=== PATIENT | male | born 1975 | race Caucasian/White ===

== ENCOUNTER 2019-02-22 07:40 | Day surgery (SDC) | payer BC ==
[~2019-02-22 07:40] MED LIST: Lactated Ringers 1,000 ML IV SCH; Lidocaine 1%/Sod Bicarbonate in NS 8.4% 1 ML Syringe IDERM PRN; Sodium Chloride 0.9% 10 ML Syringe FLUSH PRN
[2019-02-22] MEDS ORDERED: fentaNYL 100 MCG/2 ML SDV ONE (09:10)
[2019-02-22] MEDS ORDERED: Propofol 200 MG/20 ML SDV ONE ×3 (09:10→09:49)
[2019-02-22] MEDS ORDERED: Albuterol 6.7 GM Inhaler INH ONE (09:23)
--- NOTE | 2019-02-22 09:28 | PCM.PREANE ---
Preanesthetic Assessment - Anesthesia/Transfusion/Family Hx Anesthesia History: Prior Anesthesia Without Reaction Family History of Anesthesia Reaction: No - Review of Systems General: No Symptoms Pulmonary: No Symptoms (Exercise induced asthma. Uses his inhaler prior to exercise. ) Cardiovascular: No Symptoms (Runs 3 miles a few times a week. ) Gastrointestinal: No Symptoms Neurological: No Symptoms Other: Reports: None (Morbid Obesity BMI 45) - Physical Assessment NPO Status Date: 02/21/19 NPO Status Time: 22:00 O2 Sat by Pulse Oximetry: 94 Respiratory Rate: 16 Vital Signs: Last Vital Signs Temp 36.4 C 02/22/19 07:50 Pulse 53 L 02/22/19 07:50 Resp 16 02/22/19 07:50 BP 126/55 L 02/22/19 07:50 Pulse Ox 94 L 02/22/19 07:50 Height: 1.73 m Weight: 134.263 kg ASA Class: 2 Mental Status: Alert & Oriented x3 Airway Class: Mallampati = 2 Dentition: Reports: Normal Dentition Thyro-Mental Finger Breadths: 3 Mouth Opening Finger Breadths: 3 ROM/Head Extension: Full Lungs: Clear to Auscultation, Normal Respiratory Effort Cardiovascular: Regular Rate, Regular Rhythm - Allergies Allergies/Adverse Reactions: Allergies Allergy/AdvReac Type Severity Reaction Status Date / Time shellfish derived Allergy Itching Verified 02/21/19 14:13 - Anesthesia Plan Pre-Op Medication Ordered: Anxiolytic, Other (Proventil Inhaler 2 puffs ) - Acknowledgements Anesthesia Type Planned: MAC Pt an Appropriate Candidate for the Planned Anesthesia: Yes Alternatives and Risks of Anesthesia Discussed w Pt/Guardian: Yes Pt/Guardian Understands and Agrees with Anesthesia Plan: Yes PreAnesthesia Questionnaire - HOME MEDS Home Medications: Home Meds Albuterol Sulfate [Albuterol Sulfate Hfa] 2 puff INH Q4H PRN 02/21/19 [History] Benzonatate [Tessalon Perle] 100 - 200 mg PO QID PRN 02/21/19 [History] Codeine/guaiFENesin [Robitussin AC] 5 ml PO Q4H PRN 02/21/19 [History] Fish Oil/[place]-3 Fatty Acids [Fish Oil 1,000 MG] 1 gm PO DAILY 02/21/19 [History ] Iron 18 mg PO DAILY 02/21/19 [History] Multivitamin [Daily Multiple Vitamin] 1 tab PO DAILY 02/21/19 [History] - CURRENT (IN HOUSE) MEDS Current Meds: Current Medications Lactated Ringer's (Ringers, Lactated) 1,000 mls @ 125 mls/hr IV ASDIRECTED KIMBERLYN Stop: 02/22/19 23:00 Last Admin: 02/22/19 08:15 Dose: 125 mls/hr Lidocaine/Sodium Bicarbonate (Buffered Lidocaine 1% In Ns 8.4%) 0.25 ml IDERM ONETIME PRN PRN Reason: Prior to IV Start Stop: 02/22/19 18:00 Last Admin: 02/22/19 08:14 Dose: 0.25 ml Sodium Chloride (Saline Flush) 10 ml FLUSH ASDIRECTED PRN PRN Reason: Keep Vein Open Stop: 02/22/19 18:00 Discontinued Medications Albuterol (Proventil Hfa) Confirm Administered Dose 6.7 gm INH .STK-MED ONE Stop: 02/22/19 09:24 Fentanyl (Sublimaze) Confirm Administered Dose 100 mcg .ROUTE .STK-MED ONE Stop: 02/22/19 09:11 Lidocaine HCl (Xylocaine-Mpf 1%) Confirm Administered Dose 10 mls @ as directed .ROUTE .STK-MED ONE Stop: 02/22/19 09:12 Propofol (Diprivan 20 Ml) Confirm Administered Dose 200 mg .ROUTE .STK-MED ONE Stop: 02/22/19 09:11 Propofol (Diprivan 20 Ml) Confirm Administered Dose 200 mg .ROUTE .STK-MED ONE Stop: 02/22/19 09:11
[2019-02-22] MEDS ORDERED: Glycopyrrolate 0.2 MG/ML SDV ONE (09:50)
[2019-02-22] MEDS ORDERED: Lactated Ringers 1,000 ML ONE (09:57)
--- NOTE | 2019-02-22 10:29 | PCM48HPAN ---
Post Anesthesia Note - EVALUATION WITHIN 48HRS OF ANESTHETIC Vital Signs in Normal Range: Yes Patient Participated in Evaluation: Yes Respiratory Function Stable: Yes Airway Patent: Yes Cardiovascular Function Stable: Yes Hydration Status Stable: Yes Pain Control Satisfactory: Yes Nausea and Vomiting Control Satisfactory: Yes Mental Status Recovered: Yes Pulse Rate: 82 SaO2: 94 Resp Rate: 16 Temperature: 36.3 C Blood Pressure: 106/43
--- NOTE | 2019-02-22 10:32 | PCM.OPNOTE ---
- General Post-Op/Procedure Note Date of Surgery/Procedure: 02/22/19 Operative Procedure(s): EGD and colonoscopy Findings: 1. Gastritis 2. Hiatal hernia 1cm Pre Op Diagnosis: Positive FIT test and anemia Post-Op Diagnosis: same Anesthesia Technique: MAC Primary Surgeon: Khushi Montenegro Anesthesia Provider: Consuelo Huddleston Pathology: 1. Gastric antrum Fluid Replacement, Intraop: 1,500 Output, Urine Amount: 0 EBL in mLs: 0 Complications: none apparent Condition: Good
--- NOTE | 2019-02-22 10:35 | PCM.PRNOTE ---
- Free Text/Narrative Note: Operative Report Date of Procedure: February 22, 2019 Pre Op Diagnosis: Positive FIT test and anemia Post-Op Diagnosis: Same Operative Procedures: 1. EGD with biopsy 2. Colonoscopy to the cecum with biopsy Primary Surgeon: Khushi Montenegro MD Anesthesia Provider: Consuelo Huddleston CRNA Anesthesia Technique: MAC IV Fluid Replacement, Intraop: 1500cc crystalloid Output, Urine Amount: 0cc EBL in mLs: 0 cc Findings: 1. Gastritis 2. Hiatal hernia 1cm Specimens: Gastric Antrum for H. pylori Drain/Tubes: None Indication: The patient is a 43-year-old gentleman who presented to the clinic with anemia of unknown origin as well as a positive FIT test. The patient was consented for a diagnostic EGD and colonoscopy. Risks of bleeding, and perforation were discussed, and the patient agreed to the risks and wished to proceed. Description of the procedure: The patient was taken back to the endoscopy suite, and placed in the left lateral decubitus position. Local anesthetic to the oropharynx was administered , and a bite block was placed. The patient was sedated with MAC anesthesia. The Olympus video endoscope was inserted into the oropharynx and guided under direct vision into the esophagus, stomach, and duodenum. The gastric antrum was inspected and cold biopsy forceps were used to take tissue samples for H. pylori. The duodenal bulb and second portion of the duodenum were unremarkable. The scope was withdrawn to the stomach and retroflexed. There was no increased fluid, food or secretions in the upper gastrointestinal tract. There were multiple punctate areas of superficial erythema with stigmata of recent bleeding. No erosions or ulcers were noted. The scope was withdrawn to the esophagus. A this point we noted a 1 cm sliding hiatal hernia. No Adkins s esophagus changes were noted. The endoscope was then withdrawn Next, anorectal examination was performed. No lesions, masses or hemorrhoids were noted externally or on palpation. The scope was placed into the rectum and advanced to cecum. Upon reaching the cecum, and the patients cecum was entered. There was minimal tortuosity of the colon. The ileocecal valve was well visualized and the appendiceal orifice identified. There was residual stool in the cecum and proximal ascending colon that made visualization moderately more difficult. Some of this residual stool matter was very dark and appeared slightly melanotic. At this point, the scope was slowly withdrawn, paying attention to the mucosa. The patient had adequate bowel prep, 75-80% of the mucosa was visible. No additional polyps or mucosal abnormality was noted. In the rectum, scope was retroflexed and some hemorrhoidal tissue was noted. The scope was placed back in the lumen and excess air was aspirated. The scope was removed. The patient tolerated the procedure very well. Complications: None apparent Condition: The patient was transported to PACU in stable condition. Recommendations: The patient will be started on PPI therapy for his findings of gastritis. This might be responsible for the anemia. In addition, the question of melanotic stool residual in the cecum, will prompt evaluation of the small bowel with CT enterography. Khushi Montenegro MD General Surgery
[2019-02-22 11:00] VITALS: BP 111/72
== END 2019-02-22 11:05 | disposition home or self-care (01) ==
LOC: JD.SDS 07:40
PROVIDERS: ATTEND Surgery
DX: K29.71 Gastritis, unspecified, with bleeding (principal); K22.70 Barrett's esophagus without dysplasia; K44.9 Diaphragmatic hernia without obstruction or gangrene; K31.89 Other diseases of stomach and duodenum; K63.89 Other specified diseases of intestine; K64.9 Unspecified hemorrhoids; D64.9 Anemia, unspecified; G47.33 Obstructive sleep apnea (adult) (pediatric); E66.01 Morbid (severe) obesity due to excess calories; Z68.42 Body mass index [BMI] 45.0-49.9, adult; Z91.013 Allergy to seafood; Z99.89 Dependence on other enabling machines and devices; Z87.891 Personal history of nicotine dependence; Z79.899 Other long term (current) drug therapy
CPT/HCPCS: 43239; 45378; A9270; J2001; J2704; J3010; J3490; J7120; 00813